=== PATIENT | female | born 1995 | race Caucasian/White ===

== ENCOUNTER 2017-04-17 12:40 | Observation (INO) ==
[2017-04-17 13:22] LABS: Bilirubin,Urine Negative (Negative); Blood,Urine Negative (Negative); Clarity,Urine Cloudy (Clear); Color,Urine Yellow (Yellow); Glucose,Urine (UA) Normal (Normal); Ketones,Urine Negative (Negative); Leukocyte Esterase,Urine Negative (Negative); Nitrite,Urine Negative (Negative); PH,Urine 6.5 pH Units (5.0-8.0); Protein,Urine Negative (Neg-Trace); Specific Gravity,Urine 1.008 (1.010-1.025); Urobilinogen,Urine Normal (Normal)
[2017-04-17 13:24] LABS: Bacteria,Urine Few per hpf (None-Few); Hyaline Casts,Urine None Seen per lpf (None-Few); RBC,Urine 0-3 per hpf (0-3); Squamous Epithelial Cell,Urine Many per lpf (None-Few); WBC,Urine 0-3 per hpf (0-3)
--- NOTE | 2017-04-17 13:39 | Discharge Summary ---
Date of Encounter: 04/17/17 Time of Encounter: 13:38 - Discharge Diagnosis (1) 38 weeks gestation of Priority: Primary Status: Acute Comments: admit for observation for rule out rupture of membranes Nitrazine negative (2) False labor Priority: Secondary Status: Acute Comments: no cervical change (3) NST (non-stress test) reactive Priority: Secondary Status: Acute Comments: baseline 125 bpm moderate variability +15x15 accels no decels noted. Cat. 1 tracing - Discharge Medications Home Medications: Pnv Cmb#21/Iron/Folic Acid [ Complete [place]] 1 each PO DAILY 04/17/17 [ History] Allergies/Adverse Reactions: Allergies Latex, Natural Rubber Allergy (Verified 06/26/15 20:55) Rash Data Procedures and tests throughout hospitalization: Laboratory Tests 04/17/17 13:10 Urine Color Yellow Urine Clarity Cloudy A Urine pH 6.5 Ur Specific [place] 1.008 L Urine Protein Negative Urine Glucose (UA) Normal Urine Ketones Negative Urine Blood Negative Urine Nitrite Negative Urine Bilirubin Negative Urine Urobilinogen Normal Ur Leukocyte Esterase Negative Urine Microscopic RBC 0-3 Urine Microscopic WBC 0-3 Ur Squamous Epith Cells Many H Urine Bacteria Few Hyaline Casts None Seen Ur Culture Indicated? NO Labs on day of discharge: Labs from last 24 hours 04/17/17 13:10 Urine Color Yellow Urine Clarity Cloudy A Urine pH 6.5 Ur Specific [place] 1.008 L Urine Protein Negative Urine Glucose (UA) Normal Urine Ketones Negative Urine Blood Negative Urine Nitrite Negative Urine Bilirubin Negative Urine Urobilinogen Normal Ur Leukocyte Esterase Negative Urine Microscopic RBC 0-3 Urine Microscopic WBC 0-3 Ur Squamous Epith Cells Many H Urine Bacteria Few Hyaline Casts None Seen Ur Culture Indicated? NO Date of admission: 04/17/17 12:40 Primary care physician: PCP NO Discharging clinician: Amparo Terrazas Anticipated date of discharge: 04/17/17 - Patient Status Disposition: Home, Self-Care Condition: Good Functional capacity at discharge: independent ambulation - Discharge Instructions Follow Up With: NO,PCP [Primary Care Provider] - - Diet and Activity Activity: increase activity as tolerated Diet: regular diet Hospital Course [facility] Hospital course: Patient is 21 y/o at 38w3d presents to labor and delivery for leaking fluid after intercourse. Patient denies contractions or VB. Nitrazine was negative. NST reactive. No cervical change. Time Attestation: Total time spent providing and/or coordinating discharge services: Time Spent: Less than 30 minutes Exam - Constitutional General appearance IM: A&O X 3, pleasant, answers questions appropriately (FHR 125 bpm moderate variability +15x15 accels no decels noted. Irregular contraction. Cat. 1 tracing) - VTE Reasons for not Prescribing Prophylaxis: Treatment not Indicated - Low risk for VTE
== END 2017-04-17 13:45 | disposition home or self-care (01) ==
LOC: 1NENULAB
PROVIDERS: ADMIT Obstetrics & Gynecology; ATTEND Obstetrics & Gynecology

== ENCOUNTER → 2021-08-28 02:09 | Observation (INO) ==
[2021-08-28 01:12] LABS: Amorphous Sediment,Urine Few per hpf (None-Few); Bacteria,Urine Few per hpf (None-Few); Bilirubin,Urine Negative (Negative); Blood,Urine Small (Negative); Clarity,Urine Turbid (Clear); Color,Urine Light-Yellow (Yellow); Glucose,Urine (UA) Normal (Normal); Ketones,Urine Negative (Negative); Leukocyte Esterase,Urine Moderate (Negative); Mucus,Urine Few per lpf (None-Few); Nitrite,Urine Negative (Negative); Protein,Urine 50 mg/dL (Neg-Trace); Squamous Epithelial Cell,Urine Few per hpf (None-Few); Urobilinogen,Urine Normal (Normal); WBC,Urine 50-100 per hpf (0-3)
[~2021-08-28 02:09] MED LIST: Nitrofurantoin (BID) 100 MG CAPSULE PO SCH
== END | disposition home or self-care (01) ==
LOC: 1NENULAB
PROVIDERS: ADMIT Advanced Practice Midwife; ATTEND Advanced Practice Midwife

== ENCOUNTER 2021-12-06 05:44 | Inpatient (IN) ==
[2021-12-06] MEDS ORDERED: Famotidine 20 MG/2 ML VIAL IVP ONE (06:06)
[2021-12-06] MEDS ORDERED: CeFAZolin 2,000 MG/120 ML BAG IVPB ONE (06:06)
[2021-12-06] MEDS ORDERED: Ringers Solution, Lactated 1,000 ML IVC ONE (06:06)
[2021-12-06] MEDS ORDERED: Metoclopramide 10 MG/2 ML VIAL IVP ONE (06:06)
[2021-12-06] MEDS ORDERED: *HR* HYDROmorphone PF 0.5 MG/0.5 ML SYRINGE IVP PRN (06:35)
[2021-12-06] MEDS ORDERED: *HR* Labetalol 20 MG/4 ML SYRINGE IVP PRN (06:35)
[2021-12-06] MEDS ORDERED: Promethazine 6.25 MG in Water for inj. (sterile) 20 ML IVPB PRN (06:35)
[2021-12-06] MEDS ORDERED: Acetaminophen IV 1,000 MG/100 ML BAG IVPB PRN (06:35)
[2021-12-06] MEDS ORDERED: *HR* Phenylephrine 10 MG/ML VIAL ONE (07:03)
[2021-12-06] MEDS ORDERED: *HR* FentaNYL (PF) 100 MCG/2 ML VIAL ONE (07:12)
[2021-12-06] MEDS ORDERED: *HR* Morphine Sulfate/PF 10 MG/10 ML AMPUL ONE (07:12)
[2021-12-06] MEDS ORDERED: Oxytocin 20 units/ LR 1000 mL 20 UNIT/1,000 ML BAG IVC ONE (07:13)
[2021-12-06 07:16] LABS: Influenza A PCR Negative (Negative); Influenza B PCR Negative (Negative); Resp. Syncytial Virus PCR Negative (Negative)
[2021-12-06 07:17] LABS: SARS-CoV-2 by PCR (In House) Negative (Negative)
[2021-12-06] MEDS ORDERED: Ondansetron 4 MG/2 ML VIAL ONE (07:17)
[2021-12-06 07:23] LABS: Basophils # 0.1 K/mcL (0.0-0.2); Basophils % 0.5 %; Eosinophils # 0.1 K/mcL (0.0-0.6); Eosinophils % 0.7 %; Hematocrit 42.7 % (35.3-44.9); Hemoglobin 14.1 g/dL (11.5-15.4); Immature Granulocytes % 0.3 % (0-4); Lymphocytes # 2.7 K/mcL (0.6-4.6); Lymphocytes % 24.8 %; Mean Corpuscular Hemoglobin 27.7 pg (28.0-33.3); Mean Corpuscular Volume 83.9 fL (83.0-100.0); Mean Platelet Volume 10.6 fL (9.4-12.4); Monocytes # 0.8 K/mcL (0.0-1.3); Monocytes % 6.8 %; Neutrophils # 7.4 K/mcL (1.6-8.9); Platelet Count 226 K/mcL (140-400); Red Blood Count 5.09 M/mcL (3.82-4.97); Red Cell Distribution Width 14.6 % (11.5-14.5); Segmented Neutrophils % 66.9 %
[2021-12-06] MEDS ORDERED: Acetaminophen IV 1,000 MG/100 ML BAG IVPB ONE (08:04)
[2021-12-06] MEDS ORDERED: Ketorolac 30 MG/ML VIAL ONE (08:20)
[2021-12-06] MEDS ORDERED: Ropivacaine/PF 0.2% 20 ML VIAL ONE (08:56)
[2021-12-06] MEDS ORDERED: Ondansetron 4 MG/2 ML VIAL IVP PRN (11:45)
[2021-12-06] MEDS ORDERED: Metoclopramide 10 MG/2 ML VIAL IVP PRN (11:45)
[2021-12-06] MEDS ORDERED: Simethicone 80 MG TAB.CHEW PO PRN (11:45)
[2021-12-06] MEDS ORDERED: NON-FORMULARY MEDICATION 1 EACH EACH (Prenatal Vits96/Iron Fum/Folic [Prenatal Tablet] 1 E PO SCH (11:45)
[2021-12-06] MEDS ORDERED: Prenatal Vit/FA 1 EACH TABLET PO SCH (11:45)
[2021-12-06] MEDS ORDERED: *HR* OxyCODONE Immed Rel 5 MG TABLET PO PRN (11:45)
[2021-12-06] MEDS ORDERED: Acetaminophen 325 MG TABLET PO SCH (11:45)
[2021-12-06] MEDS: Oxytocin 20 units/ LR 1000 mL 20 UNIT/1,000 ML BAG IVC SCH ×2 (12:00→20:06)
[2021-12-06] MEDS ORDERED: Ibuprofen 600 MG TABLET PO SCH (12:00)
[2021-12-06 13:21] LABS: Amphetamine Screen,Urine Negative ng/mL (Cutoff=1000); Barbiturate Screen,Urine Negative ng/mL (Cutoff=200); Benzodiazepines Screen,Urine Negative ng/mL (Cutoff=300); Cannabinoid Screen,Urine Negative ng/mL (Cutoff = 50); Cocaine Screen,Urine Negative ng/mL (Cutoff= 300); Opiate Screen,Urine Negative ng/mL (Cutoff=300); Phencyclidine Screen,Urine Negative ng/mL (Cutoff=25)
[2021-12-06] MEDS: Acetaminophen 325 MG TABLET PO SCH ×3 (13:51→23:29)
[2021-12-06] MEDS: Ibuprofen 600 MG TABLET PO SCH ×2 (14:00→20:06)
[2021-12-06] MEDS: metroNIDAZOLE 500 MG TABLET PO SCH ×2 (14:00→20:06)
[2021-12-06] MEDS: CeFAZolin 2,000 MG/120 ML BAG IVPB SCH ×2 (16:45→23:28)
[2021-12-06] MEDS ORDERED: Lanolin 7 G OINT...G. TP PRN (20:05)
[2021-12-07] MEDS: Ibuprofen 600 MG TABLET PO SCH (03:34)
[2021-12-07 03:54] VITALS: O2SAT 97
[2021-12-07 04:10] LABS: Basophils % 0.4 %; Eosinophils # 0.2 K/mcL (0.0-0.6); Eosinophils % 1.7 %; Hematocrit 34.8 % (35.3-44.9); Immature Granulocytes % 0.4 % (0-4); Lymphocytes # 2.2 K/mcL (0.6-4.6); Lymphocytes % 23.4 %; Mean Corpuscular HGB Conc 33.3 g/dL (31.6-35.5); Mean Corpuscular Hemoglobin 28.2 pg (28.0-33.3); Mean Corpuscular Volume 84.7 fL (83.0-100.0); Mean Platelet Volume 10.1 fL (9.4-12.4); Monocytes # 0.7 K/mcL (0.0-1.3); Neutrophils # 6.2 K/mcL (1.6-8.9); Platelet Count 166 K/mcL (140-400); Red Blood Count 4.11 M/mcL (3.82-4.97); Red Cell Distribution Width 14.6 % (11.5-14.5); Segmented Neutrophils % 67.1 %; White Blood Count 9.3 K/mcL (4.3-11.1)
[2021-12-07 04:13] LABS: Hemoglobin 11.6 g/dL (11.5-15.4)
[2021-12-07 07:40] VITALS: BP 116/71; TEMP 99.3
[2021-12-07] MEDS ORDERED: cephALEXin 500 MG CAPSULE PO SCH (09:00)
[2021-12-07 09:09] VITALS: PULSE 60
[2021-12-07] MEDS: Acetaminophen 325 MG TABLET PO SCH (09:51)
== END 2021-12-07 10:00 | disposition home or self-care (01) | DRG 540 ==
LOC: 1NENULAB 05:44 → 1NENUOBS 10:51
PROVIDERS: ADMIT Obstetrics & Gynecology; ATTEND Obstetrics & Gynecology